=== PATIENT | male | born 1970 | race African-American/Black ===

== ENCOUNTER 2018-05-27 06:57 | Emergency (ER) | payer MEDICAID ==
[~2018-05-27] VITALS: Ht 172.7 cm; Wt 82.0 kg
[2018-05-27] MEDS ORDERED: NITROGLYCERIN OINT 1GM/INCH UDPKT TD STA (07:22)
[2018-05-27 07:40] LABS: BASOPHILS % 0.2 % (0.0-2.0); HEMATOCRIT. 34.9 % (42.0-52.0); HEMOGLOBIN. 11.4 g/dL (14.0-18.0); MEAN CORPUSCULAR HEMOGLOBIN 29.5 pg (28.0-32.0); MEAN CORPUSCULAR VOLUME 90.8 fL (80.0-94.0); MEAN PLATELET VOLUME 7.5 fl (7.4-10.4); MONOCYTES % 9.2 % (2.0-8.0); NEUTROPHILS % 72.6 % (40.0-76.0); PLATELET 241 x1000/uL (130-400); RED BLOOD CELL COUNT 3.84 mill/uL (4.7-6.1); RED CELL DISTRIBUTION WIDTH 15.7 % (11.6-14.6)
[2018-05-27 07:44] LABS: CHLORIDE 104 mEq/L (98-107)
[2018-05-27 07:48] LABS: D-DIMER 2.07 mg/L FEU (<0.50); INR 1.5; PARTIAL THROMBOPLASTIN TIME 27.8 sec (23.4-31.0); PROTHROMBIN TIME 15.4 sec (9.4-11.6)
[2018-05-27 08:48] VITALS: BP 120/70
== END 2018-05-27 08:53 | disposition left against medical advice (07) ==
LOC: ER 06:57 → CANRESERV 08:27 → ENRESERV 08:27 → ER 08:53 → CANBEDREQ 09:10
DX: R07.89 Other chest pain (principal); D64.9 Anemia, unspecified; R79.89 Other specified abnormal findings of blood chemistry; N18.6 End stage renal disease; I25.10 Atherosclerotic heart disease of native coronary artery without angina pectoris; Z86.73 Personal history of transient ischemic attack (TIA), and cerebral infarction without residual deficits; Z86.718 Personal history of other venous thrombosis and embolism; Z99.2 Dependence on renal dialysis
CPT/HCPCS: 36415; 71045; 80053; 83690; 84484; 85025; 85379; 85610; 85730; 93005; 99285; Z7610